=== PATIENT | male | born 1960 ===

== ENCOUNTER 2016-12-31 18:05 | Emergency (ER) | payer MEDICARE ==
[2016-12-31 18:14] VITALS: BP 140/69; PULSE 81; RESP 16; TEMP 98.3; O2SAT 98
[2016-12-31] MEDS ORDERED: Oxycodone/Acetaminophen 5/325 mg Tab ONE (18:34)
[2016-12-31] MEDS ORDERED: Oxycodone/Acetaminophen 5/325 mg Tab PO STA (18:35)
[2016-12-31] MEDS ORDERED: Lidocaine 5% Patch TD STA (19:00)
--- NOTE | 2016-12-31 19:13 | ED PDOC ---
Upper Extremity Pain/Injury Time Seen by Provider: 12/31/16 18:23 Chief Complaint (Nursing): Chest Pain Chief Complaint (Provider): Right Sided Hand Pain History Per: Patient History/Exam Limitations: no limitations Onset/Duration Of Symptoms: Other (years) Current Symptoms Are (Timing): Still Present Quality: "Pain" Pain Scale Rating Of: 9 Additional Complaint(s): Antonio Osorio, a 56 year old male, with a past medical history of thoracic spine surgery (2010) presents to the ED complaining of right sided pain from his head to his hand since 2011. The patient reports that he is under the care of pain management. He states that he is currently taking gabapentin and oxycotin and his doctor is out of town and he only has a few pills left. The patient reports that the pain is felt mostly in his shoulder and is exacerbated by movement. In ED patient is agitated and requesting pain medication. PMD: Rosalio Staples Past Medical History Reviewed: Historical Data, Nursing Documentation, Vital Signs Vital Signs: Last Vital Signs Temp 98.3 F 12/31/16 18:10 Pulse 81 12/31/16 18:10 Resp 16 12/31/16 18:10 BP 140/69 12/31/16 18:10 Pulse Ox 98 12/31/16 18:10 - Medical History PMH: No Chronic Diseases - Surgical History Surgical History: No Surg Hx - Family History Family History: States: Unknown Family Hx - Living Arrangements Living Arrangements: With Family - Home Medications Home Medications: Ambulatory Orders Medication Instructions Recorded oxyCODONE/Acetaminophen [Percocet 1 tab PO Q8 #5 tab 12/31/16 5/325 mg Tab] - Allergies Allergies/Adverse Reactions: Allergies Allergy/AdvReac Type Severity Reaction Status Date / Time No Known Allergies Allergy Verified 12/31/16 18:14 Review of Systems ROS Statement: Except As Marked, All Systems Reviewed And Found Negative Musculoskeletal: Positive for: Hand Pain (right sided hand pain) Neurological: Positive for: Headache (right sided head pain) Physical Exam - Reviewed Nursing Documentation Reviewed: Yes Vital Signs Reviewed: Yes - Physical Exam Appears: Positive for: Non-toxic, No Acute Distress Head Exam: Positive for: ATRAUMATIC, NORMAL INSPECTION, NORMOCEPHALIC Skin: Positive for: Normal Color (Piloerection; No lesions deformity edema erythema to right shoulder.), Warm, Dry. Negative for: Rash Eye Exam: Positive for: Normal appearance, EOMI, PERRL. Negative for: Nystagmus ENT: Positive for: Normal ENT Inspection. Negative for: Nasal Congestion, Tonsillar Exudate Neck: Positive for: Normal, Painless ROM, Supple Cardiovascular/Chest: Positive for: Regular Rate, Rhythm, Chest Non Tender. Negative for: Tachycardia Respiratory: Positive for: Normal Breath Sounds. Negative for: Rales, Rhonchi, Wheezing, Respiratory Distress Gastrointestinal/Abdominal: Positive for: Normal Exam, Bowel Sounds, Soft. Negative for: Tenderness, Mass, Guarding, Rebound Back: Positive for: Normal Inspection. Negative for: L CVA Tenderness, R CVA Tenderness Extremity: Positive for: Normal ROM (Decreased ROM of right shoulder secondary to pain) Lymphatic: Positive for: Normal Exam. Negative for: Adenopathy Neurologic/Psych: Positive for: Alert, Oriented, Gait - ECG O2 Sat by Pulse Oximetry: 98 (RA) Pulse Ox Interpretation: Normal Medical Decision Making Medical Decision Makin Initial Impression 56 y/o male presenting with right sided head and hand pain Initial Plan: * Alcohol Serum * Lidocaine 5% 1 ea TD * Oxycodone 1 tab PO * Toradol 30mg IM * Rad Right Shoulder * Reevaluation [facility] website reviewd had 99 oxycodone filled on November 28 . states that she is the one who drove the patient here today. 1844 Upon provider reevaluation patient is medically stable, and requires no further treatment in the ED at this time. Patient will be discharged home in the care of his . Scribe Attestation Documented by Sussy Ibrahim acting as a scribe for Pedro Chruchill MD. Provider Attestation All medical record entries made by the Scribe were at my direction and personally dictated by me. I have reviewed the chart and agree that the record accurately reflects my personal performance of the history, physical exam, medical decision making, and the department course for this patient. I have also personally directed, reviewed, and agree with the discharge instructions and disposition. Disposition - Clinical Impression Clinical Impression: Chronic musculoskeletal pain - Patient ED Disposition Is Patient to be Admitted: No Counseled Patient/Family Regarding: Studies Performed, Diagnosis - Disposition Disposition: Routine/Home Disposition Time: 18:45 Condition: STABLE Additional Instructions: FOLLOW-UP WITH YOUR PMD AND PAIN MANAGEMENT FOR REEVALUATION. Prescriptions: oxyCODONE/Acetaminophen [Percocet 5/325 mg Tab] 1 tab PO Q8 #5 tab Instructions: Musculoskeletal Pain (ED) Forms: [facility] (I[place]ic) - POA Present On Arrival: None
== END 2016-12-31 19:19 | disposition home or self-care (01) ==
LOC: H.ER 18:05
DX: M79.1 Myalgia (principal); G89.29 Other chronic pain
CPT/HCPCS: 96372; 99282; J1885

== ENCOUNTER 2017-05-22 17:12 | Emergency (ER) | payer MEDICARE ==
[2017-05-22 17:31] VITALS: BP 123/86; RESP 18; TEMP 98.6; O2SAT 100
--- NOTE | 2017-05-22 17:56 | RAD ---
HISTORY: chest pain COMPARISON: No prior. TECHNIQUE: Chest PA and lateral FINDINGS: LUNGS: No active pulmonary disease. PLEURA: No significant pleural effusion identified. No pneumothorax apparent. CARDIOVASCULAR: Normal. OSSEOUS STRUCTURES: No significant abnormalities. VISUALIZED UPPER ABDOMEN: Normal. OTHER FINDINGS: None. IMPRESSION: No active disease.
[2017-05-22] MEDS ORDERED: Morphine 4 MG/ML VIAL IVP ONE (18:17)
[2017-05-22] MEDS ORDERED: Morphine 4 MG/ML VIAL ONE (18:31)
[2017-05-22 18:33] LABS: BASO # 0.1 K/uL (0.0-0.2); BASO % 0.8 % (0.0-2.0); EOS # 0.1 K/uL (0.0-0.7); EOS % 0.9 % (0.0-4.0); HEMOGLOBIN 14.5 g/dL (12.0-18.0); LYMPH # 2.6 K/uL (1.0-4.3); LYMPH % 28.5 % (20.0-40.0); MEAN CELL VOLUME 86.5 fl (80.0-94.0); MEAN CORPUSCULAR HEMOGLOBIN 29.3 pg (27.0-31.0); MEAN CORPUSCULAR HGB CONC 33.9 g/dL (33.0-37.0); MEAN PLATELET VOLUME 9.1 fl (7.2-11.7); MONO # 0.7 K/uL (0.0-0.8); NEUT # 5.6 K/uL (1.8-7.0); NEUT % 61.8 % (50.0-75.0); NRBC % 0.1 % (0.0-0.0); RBC 4.95 Mil/uL (4.40-5.90); RED CELL DISTRIBUTION WIDTH 13.4 % (11.5-14.5); WHITE BLOOD COUNT 9.1 K/uL (4.8-10.8)
[2017-05-22 18:40] LABS: URINE BACTERIA RARE (<OCC); URINE BILIRUBIN NEGATIVE (NEGATIVE); URINE BLOOD SMALL (NEGATIVE); URINE CLARITY CLEAR (Clear); URINE COLOR YELLOW (YELLOW); URINE GLUCOSE (UA) NEG (Normal); URINE LEUKOCYTE ESTERASE NEG Leu/uL (Negative); URINE PROTEIN NEGATIVE (NEGATIVE); URINE UROBILINOGEN 0.2-1.0 mg/dL (0.2-1.0)
[2017-05-22 18:50] LABS: ALB/GLOB RATIO 1.3 (1.0-2.1); ALBUMIN 4.4 g/dL (3.5-5.0); ALT/SGPT 41 U/L (21-72); AST/SGOT 26 U/L (17-59); BLOOD UREA NITROGEN 16 mg/dl (9-20); CALCIUM 9.8 mg/dL (8.4-10.2); GFR AFRICAN-AMERICAN > 60; GFR NON-AFRICAN AMERICAN > 60
[2017-05-22 19:02] LABS: B-TYPE NATRIURETIC PEPTIDE 47.7 pg/ml (0-900)
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
[2017-05-22 19:09] VITALS: PULSE 68
--- NOTE | 2017-05-23 09:01 | CARD ---
APPROVED REPORT EKG Measurement Heart [id number] <Conclusion> Normal sinus rhythm Normal ECG
== END 2017-05-22 20:14 | disposition home or self-care (01) ==
LOC: H.ER 17:12
DX: M25.511 Pain in right shoulder (principal); M79.1 Myalgia; M54.2 Cervicalgia; G89.29 Other chronic pain
CPT/HCPCS: 71046; 80053; 81003; 83880; 84484; 85025; 93005; 96374; 99282; J2270